=== PATIENT | female | born 1980 | race American Indian/Alaskan Native ===

== ENCOUNTER 2016-11-10 04:25 | Emergency (ER) | payer SELFPAY ==
[2016-11-10 04:57] VITALS: BP 136/96
--- NOTE | 2016-11-10 06:07 | XRay Report ---
FINAL REPORT PROCEDURE: XR ANKLE 3 LT TECHNIQUE: LEFT ankle radiographs, AP, lateral, and oblique views. CPT 32938 HISTORY: PAIN COMPARISON: No prior studies are available for comparison. FINDINGS: Fracture (s) and/or Dislocation(s): None. Alignment: Normal. Joint space(s): Normal. Soft tissues: Normal. Bone mineralization: Normal. Foreign bodies: None. Calcaneal spurring: There are calcaneal spurs.. IMPRESSION: There is no acute bony or soft tissue abnormality. There are calcaneal spurs..
--- NOTE | 2016-11-10 06:11 | XRay Report ---
FINAL REPORT PROCEDURE: XR FOOT 3 LT TECHNIQUE: LEFT foot radiographs, AP, lateral, and oblique views. CPT 70649 HISTORY: PAIN COMPARISON: No prior studies are available for comparison. FINDINGS: Fracture (s) and/or Dislocation(s): None . Alignment: Normal . Joint space(s): Normal . Soft tissues: There is generalized soft tissue swelling of the forefoot.. Bone mineralization: Normal . Foreign bodies: None . Calcaneal spurring: None . IMPRESSION: There is soft tissue swelling of the forefoot. There is no acute bony abnormality..
[2016-11-10] MEDS ORDERED: MOTRIN PO ONE (07:54)
--- NOTE | 2016-11-10 07:55 | Emergency Department Report ---
ED Lower Extremity HPI - General Chief Complaint: Extremity Problem,Nontraumatic Stated Complaint: L FOOT PAIN Time Seen by Provider: 11/10/16 07:08 Source: patient Mode of arrival: Ambulatory Limitations: No Limitations - History of Present Illness Initial Comments: This is a 35-year-old femalewell-nourished with nontoxic or ill in appearance but presents with left foot pain for 8 days with swelling. Patient denies any injuries or trauma to the area. Patient stated has been wearing boots may have twisted ankle. Patient denies hx of gout. Patient denies any numbness, tingling , nausea vomiting, chest pain, shortness of breath, calf pain, or deformity. Patient states has a normal gait. Patient denies any drug allergies. MD Complaint: foot injury (left) -: Gradual, days(s) (8) Injury: Foot: Left Type of Injury: inversion Place: street/outdoors Severity: mild Severity scale (0 -10): 10 Improves With: immobilization Worsens With: movement Associated Symptoms: swelling, ambulatory. denies: snap/pop sensation, numbness , tingling, unable to bear weight, able to partially bear weight - Related Data Previous Rx's Medication Instructions Recorded Last Taken Type Ibuprofen [Motrin 600 MG tab] 600 mg PO Q8H PRN #12 tablet 11/10/16 Unknown Rx Allergies Allergy/AdvReac Type Severity Reaction Status Date / Time No Known Allergies Allergy Verified 11/10/16 04:52 ED Review of Systems ROS: Stated complaint: L FOOT PAIN Other details as noted in HPI Constitutional: denies: chills, fever Eyes: denies: eye pain, eye discharge, vision change ENT: denies: ear pain, throat pain Respiratory: denies: cough, shortness of breath, wheezing Cardiovascular: denies: chest pain, palpitations Endocrine: no symptoms reported Gastrointestinal: denies: abdominal pain, nausea, diarrhea Genitourinary: denies: urgency, dysuria, discharge Musculoskeletal: denies: back pain, joint swelling, arthralgia Skin: denies: rash, lesions Neurological: denies: headache, weakness, paresthesias Psychiatric: denies: anxiety, depression Hematological/Lymphatic: denies: easy bleeding, easy bruising ED Past Medical Hx - Past Medical History Previous Medical History?: Yes Hx Psychiatric Treatment: Yes ([facility]) - Surgical History Past Surgical History?: No - Social History Smoking Status: Current Every Day Smoker Substance Use Type: None - Medications Home Medications: Home Medications Medication Instructions Recorded Confirmed Last Taken Type Ibuprofen [Motrin 600 MG tab] 600 mg PO Q8H PRN #12 tablet 11/10/16 Unknown Rx ED Physical Exam - General Limitations: No Limitations General appearance: alert, in no apparent distress - Head Head exam: Present: atraumatic, normocephalic - Eye Eye exam: Present: normal appearance, PERRL, EOMI Pupils: Present: normal accommodation - ENT ENT exam: Present: normal exam, normal orophraynx, mucous membranes moist, TM's normal bilaterally, normal external ear exam - Neck Neck exam: Present: normal inspection, full ROM. Absent: tenderness, meningismus, lymphadenopathy, thyromegaly - Respiratory Respiratory exam: Present: normal lung sounds bilaterally. Absent: respiratory distress, wheezes, rales, rhonchi, stridor, chest wall tenderness, accessory muscle use, decreased breath sounds, prolonged expiratory - Cardiovascular Cardiovascular Exam: Present: regular rate, normal rhythm. Absent: systolic murmur, diastolic murmur, rubs, gallop - GI/Abdominal GI/Abdominal exam: Present: soft, normal bowel sounds. Absent: distended, tenderness, guarding, rebound, rigid - Extremities Exam Extremities exam: Present: normal inspection, full ROM, normal capillary refill. Absent: tenderness, pedal edema, joint swelling, calf tenderness - Expanded Lower Extremity Exam Left Hip exam: Present: normal inspection, full ROM. Absent: tenderness, swelling Upper Leg exam: Present: normal inspection, full ROM. Absent: tenderness, swelling Knee exam: Present: normal inspection, full ROM. Absent: tenderness, swelling Lower Leg exam: Present: normal inspection, full ROM. Absent: tenderness, swelling Ankle exam: Present: normal inspection, full ROM. Absent: tenderness, swelling , abrasion, laceration, ecchymosis, deformity, crepidus, dislocation, erythema, anterior draw sign Foot/Toe exam: Present: normal inspection, full ROM, swelling (slightly to anterior foot). Absent: tenderness, abrasion, laceration, ecchymosis, deformity , crepidus, dislocation, erythema, amputation, puncture wound, foreign body, calcaneal tenderness, tenderness at base of 5th metatarsal, nail avulsion, subungual hematoma Neuro vascular tendon exam: Present: no vascular compromise Gait: Positive: observed and normal 1 - slight swelling 2 - ankle pain - Back Exam Back exam: Present: normal inspection, full ROM. Absent: tenderness, CVA tenderness (R), CVA tenderness (L), muscle spasm, paraspinal tenderness, vertebral tenderness, rash noted - Neurological Exam Neurological exam: Present: alert, oriented X3, CN II-XII intact, normal gait - Psychiatric Psychiatric exam: Present: normal affect, normal mood - Skin Skin exam: Present: warm, dry, intact, normal color. Absent: rash - Other Other exam information: No joint swelling or tenderness. ED Course Vital Signs 11/10/16 11/10/16 04:52 08:09 Temperature 97.9 F Pulse Rate 77 Respiratory 20 16 Rate Blood Pressure 136/96 O2 Sat by Pulse 99 Oximetry ED Lower Extremity MDM - Medical Decision Making Ed course: This is a 35-year-old female presents with strain to the left ankle and foot. 1- x-ray of the left foot and ankle has been obtained. Dictated by Dr. Yang with results of left foot that there is a soft tissue swelling to the forefoot. There is no acute bony abnormality. X-ray to the left ankle dictated by Dr. Yang with results of that there is no acute bony or soft tissue abnormality. There is calcanealand spurs. 2- x-ray has been notified of the results to the patient. Patient has no further questions by the x-ray. 3- patient received ibuprofen 600 mg in ED. 4- patient was instructed to follow-up with her primary care doctor/orthopedic doctor if symptoms continue or worsen. 5- patient was instructed to rest, ice, compress and elevate extremity. 6- Joshua wrap has been applied in ED the left foot/ankle. 7- patient was given ibuprofen 600 mg at the time of discharge and was instructed to take as prescribed as needed for pain. 8- at time time of discharge, the patient does not seem toxic or ill in appearance. No acute signs of distress noted. Patient agrees to discharge treatment plan of care. No further questions noted by the patient. Critical care attestation.: If time is entered above; I have spent that time in minutes in the direct care of this critically ill patient, excluding procedure time. ED Disposition Clinical Impression: Ankle strain Qualifiers: Encounter type: initial encounter Laterality: left Qualified Code(s): S96.912A - Strain of unspecified muscle and tendon at ankle and foot level, left foot, initial encounter Strain of foot, left Qualifiers: Encounter type: initial encounter Qualified Code(s): S96.912A - Strain of unspecified muscle and tendon at ankle and foot level, left foot, initial encounter Disposition: DISCHARGED TO HOME OR SELFCARE Is pt being admited?: No Does the pt Need Aspirin: No Condition: Stable Instructions: Ibuprofen (By mouth), Ankle Exercises (GEN), RICE Therapy (ED) Additional Instructions: Follow-up with her primary care doctor/orthopedic doctor in 3-5 days or if symptoms worsen such as increased swelling with pain, numbness or tingling, chest pain, shortness of breath, or nausea or vomiting reported back to emergency room. Take ibuprofen as prescribed as needed for pain. Prescriptions: Ibuprofen [Motrin 600 MG tab] 600 mg PO Q8H PRN #12 tablet PRN Reason: Pain Referrals: PRIMARY CARE, [Primary Care Provider] - 3-5 Days TRIP ASHER MD [Staff Physician] - 3-5 Days [facility] [Outside] - 3-5 Days [facility] [Outside] - 3-5 Days RUTH WATKINS MD [Staff Physician] - 3-5 Days Forms: Work/School Release Form(ED)
== END 2016-11-10 08:16 | disposition home or self-care (01) ==
LOC: ED 04:25
DX: S96.912A Strain of unspecified muscle and tendon at ankle and foot level, left foot, initial encounter (principal); F20.9 Schizophrenia, unspecified; F17.200 Nicotine dependence, unspecified, uncomplicated; X58.XXXA Exposure to other specified factors, initial encounter; Y93.89 Activity, other specified; Y99.8 Other external cause status; Y92.89 Other specified places as the place of occurrence of the external cause
CPT/HCPCS: 99284